=== PATIENT | female | born 1980 | race Caucasian/White ===

== ENCOUNTER 2022-10-30 01:29 | Emergency (ER) | payer MEDICAID ==
[~2022-10-30] VITALS: Ht 167.6 cm; Wt 89.4 kg
--- NOTE | 2022-10-30 02:45 | NUR ---
Dr. Smart evaluating patient at bedside. MSE in progress.
[2022-10-30] MEDS ORDERED: IV NORMAL SALINE 250 ML BAG ONE (03:00)
[2022-10-30] MEDS ORDERED: IOHEXOL 350 100 ML INFUS..BTL ONE (03:00)
[2022-10-30] MEDS ORDERED: SWABABLE VALVE TRANSFER SET EA MC ONE (03:00)
[2022-10-30] MEDS ORDERED: ACETAMINOPHEN ES 500 MG TABLET PO ONE (03:00)
[2022-10-30 03:05] LABS: HEMATOCRIT 34.2 % (31.2-41.9); MEAN CORPUSCULAR HEMOGLOBIN 26.6 uug (24.7-32.8); MEAN CORPUSCULAR VOLUME 81.6 fL (75.5-95.3); PLATELET COUNT (AUTO) 226 K/uL (179-408)
[2022-10-30] MEDS ORDERED: ACETAMINOPHEN ES 500 MG TABLET ONE (03:11)
[2022-10-30 03:26] LABS: ALANINE AMINOTRANSFERASE 32 U/L (14-59); ALKALINE PHOSPHATASE 97 U/L (50-136); ASPARTATE AMINOTRANSFERASE 23 U/L (15-37); BILIRUBIN,DIRECT 0.1 mg/dL (0.0-0.2); BILIRUBIN,TOTAL 0.1 mg/dL (0.2-1.0); CARBON DIOXIDE 29 mmol/L (21-32); CHLORIDE 103 mmol/L (98-107); CREATININE 0.8 mg/dL (0.6-1.3); GLUCOSE 105 mg/dL (74-106); POTASSIUM 3.8 mmol/L (3.5-5.1); TOTAL PROTEIN, SERUM 7.8 g/dL (6.4-8.2); UREA NITROGEN, BLOOD 12 mg/dL (7-18)
--- NOTE | 2022-10-30 03:49 | NUR ---
Ultrasound at bedside.
--- NOTE | 2022-10-30 03:51 | NUR ---
Patient ambulated to the bathroom indepedently with walker. Activity tolerated well.
--- NOTE | 2022-10-30 04:45 | NUR ---
Pelvic exam performed by Dr. Smart.
[2022-10-30 04:48] LABS: *OCCULT BLOOD STOOL POSITIVE (NEGATIVE)
--- NOTE | 2022-10-30 04:51 | NUR ---
Patient signed [facility] chest angio consent.
--- NOTE | 2022-10-30 05:13 | NUR ---
Patient taken to [facility] via wheelchair accompanied by noe.
--- NOTE | 2022-10-30 07:33 | NUR ---
Patient is resting comfortably on gurney with eyes closed, NAD.
--- NOTE | 2022-10-30 08:30 | NUR ---
Copies of all the tests' results were given to patient. Follow-up to specialists like the executive sales assistant, public speaker, neurologist, pulomonolgist, psychiatrist and her own primary doctor was emphatically emphasized to the patient by Dr Oneal and myself.
--- NOTE | 2022-10-30 08:38 | NUR ---
Patient discharged to home by Dr Oneal in stable condition with bteady gait using her own walker. Written and verbal after care instructions given. Patient verbalized understanding and compliance of instructions. Stressed follow up with multiple specialists and her primary doctor or return to ER for worsening s/s.
[2022-10-30 08:40] VITALS: BP 129/56
== END 2022-10-30 09:11 | disposition home or self-care (01) ==
LOC: ER 01:37
DX: R07.89 Other chest pain (principal); R51.9 Headache, unspecified; R10.9 Unspecified abdominal pain; R20.2 Paresthesia of skin; R10.2 Pelvic and perineal pain; N92.0 Excessive and frequent menstruation with regular cycle; J45.909 Unspecified asthma, uncomplicated; Z86.73 Personal history of transient ischemic attack (TIA), and cerebral infarction without residual deficits; Z88.8 Allergy status to other drugs, medicaments and biological substances
CPT/HCPCS: 36415; 70450; 71045; 71275; 76856; 84484; 85025; 85730; 93005; A4663; A9150; Q9967

== ENCOUNTER 2024-09-14 02:49 | Emergency (ER) | payer MEDICAID, OTHER ==
[~2024-09-14] VITALS: Ht 165.1 cm; Wt 99.8 kg
[2024-09-14] MEDS ORDERED: ACETAMINOPHEN 500 MG TABLET ONE (03:29)
[2024-09-14] MEDS: ACETAMINOPHEN 500 MG TABLET PO ONE (03:35)
[2024-09-14 06:17] VITALS: BP 127/70; TEMP 98.6; O2SAT 98
== END 2024-09-14 06:19 | disposition home or self-care (01) ==
LOC: ER 03:01
DX: G43.909 Migraine, unspecified, not intractable, without status migrainosus (principal); M54.2 Cervicalgia; R55 Syncope and collapse; J45.909 Unspecified asthma, uncomplicated; M79.7 Fibromyalgia; Z86.711 Personal history of pulmonary embolism; Z86.718 Personal history of other venous thrombosis and embolism; Z86.73 Personal history of transient ischemic attack (TIA), and cerebral infarction without residual deficits; Z88.0 Allergy status to penicillin; Z87.19 Personal history of other diseases of the digestive system; Z60.2 Problems related to living alone
CPT/HCPCS: 93880; A4606; A4663; A9150